=== PATIENT | male | born 2000 | race Caucasian/White ===

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

== ENCOUNTER → 2022-02-21 | Outpatient (CLI) | payer OTHER | LOC: M RAD 11:20 | PROVIDERS: ATTEND Nurse Practitioner Family | DX: I86.1 Scrotal varices (principal); N50.812 Left testicular pain ==

== ENCOUNTER → 2022-04-03 | Outpatient (REF) | payer OTHER ==
[2022-04-03 14:42] LABS: SEMEN APPEARANCE OPAQUE (OPAQUE); SEMEN VISCOSITY VISCOUS (LIQUID); SEMEN VOLUME 0.9 ml (2.0-5.0)
[2022-04-03 14:43] LABS: SPERM CONCENTRATION 40.9 M/ml (>=15.0); WBC CONCENTRATION >1 M/ml (<=1 M/ml)
== END ==
LOC: M SMT 14:06
PROVIDERS: ATTEND Urology
DX: I86.1 Scrotal varices (principal)

== ENCOUNTER → 2022-05-24 | Outpatient (CLI) | payer OTHER ==
[2022-05-24 11:06] LABS: HEMATOCRIT 46.5 % (42.0-52.0); HEMOGLOBIN 15.4 g/dl (13.5-17.5); MEAN CORPUSCULAR HEMOGLOBIN 29.1 pg (27.0-33.0); MEAN CORPUSCULAR HGB CONC 33.1 g/dl (32.0-36.5); MEAN CORPUSCULAR VOLUME 87.7 fl (80.0-96.0); PLATELET COUNT, AUTOMATED 270 10^3/uL (150-450); WHITE BLOOD COUNT 6.6 10^3/uL (4.0-10.0)
[2022-05-24 11:08] LABS: APPEARANCE, URINE MANUAL CLEAR (CLEAR); COLOR, URINE MANUAL YELLOW (YELLOW)
[2022-05-24 11:09] LABS: BILIRUBIN, URINE MANUAL NEGATIVE (NEGATIVE); BLOOD URINE MANUAL NEGATIVE (NEGATIVE); GLUCOSE, URINE (UA) MANUAL NEGATIVE (NEGATIVE); KETONE, URINE MANUAL NEGATIVE (NEGATIVE); LEUKOCYTE ESTERASE, URINE MAN NEGATIVE (NEGATIVE); NITRITE, URINE MANUAL NEGATIVE (NEGATIVE); PH,URINE MAN 6.5 UNITS (5.0 - 7.0); PROTEIN, URINE MANUAL NEGATIVE (NEGATIVE); UROBILINOGEN, URINE MANUAL NORMAL (NORMAL)
[2022-05-24 11:41] LABS: ALBUMIN 4.4 G/DL (3.2-5.2); ALKALINE PHOSPHATASE 106 U/L (46-116); ALT/SGPT 25 U/L (7.0-40); AST/SGOT 20 U/L (<34); BILIRUBIN,TOTAL 0.5 MG/DL (0.3-1.2); BLOOD UREA NITROGEN 7 MG/DL (9-23); CALCIUM LEVEL 9.7 MG/DL (8.5-10.1); CARBON DIOXIDE LEVEL 30 MMOL/L (20-31); CHLORIDE LEVEL 103 MMOL/L (98-107); CREATININE FOR GFR 0.71 MG/DL (0.70-1.30); GLOMERULAR FILTRATION RATE > 60.0 (>60); GLUCOSE, FASTING 78 MG/DL (60-100); POTASSIUM SERUM 3.9 MMOL/L (3.5-5.1); SODIUM LEVEL 141 MMOL/L (136-145); TOTAL PROTEIN 7.5 G/DL (5.7-8.2)
== END ==
LOC: M LAB 09:55
PROVIDERS: ATTEND Urology
DX: I86.1 Scrotal varices (principal); Z79.899 Other long term (current) drug therapy

== ENCOUNTER → 2022-05-27 | Outpatient (CLI) | payer OTHER ==
[~2022-05-27] MED LIST changes: +MELO15TA28 PO; -METHACHOLINE KIT (J7674) INH ONE
== END ==
LOC: M LABSMTC 09:25
PROVIDERS: ATTEND Anesthesiology
DX: Z01.818 Encounter for other preprocedural examination (principal); Z11.52 Encounter for screening for COVID-19

== ENCOUNTER 2022-06-01 09:58 | Day surgery (SDC) | payer OTHER ==
[~2022-06-01] VITALS: Ht 177.8 cm; Wt 56.2 kg
[~2022-06-01 09:58] MED LIST changes: +LIDOCAINE 2% 100MG/5ML SDV (FOR ANES.) As Ordered ONE; +ONDANSETRON 4MG 2ML VIAL As Ordered ONE; +ceFAZolin SOD 2 GM in IV 1 EA IV ONE; +propofoL 200 MG/20 ML VIAL As Ordered ONE
[2022-06-01] MEDS ORDERED: LR 1,000 ML IV SCH ×2 (11:05→13:45)
[2022-06-01] MEDS ORDERED: ROCURONIUM BROMIDE 50MG/5ML VIAL As Ordered ONE (11:28)
[2022-06-01] MEDS ORDERED: MIDAZOLAM INJ 2MG/2ML VIAL As Ordered ONE (12:06)
[2022-06-01] MEDS ORDERED: fentaNYL 100 MCG/2 ML INJECTION As Ordered ONE (12:06)
[2022-06-01] MEDS ORDERED: LIDOCAINE 1% SDV 30ML VIAL As Ordered ONE (12:07)
[2022-06-01] MEDS ORDERED: BUPIVACAINE HCL 0.25% 30ML VIAL As Ordered ONE (12:07)
[2022-06-01] MEDS ORDERED: ePHEDrine SULFATE 25 MG/5 ML(5MG/ML) SYRINGE As Ordered ONE ×2 (13:05→13:25)
[2022-06-01] MEDS ORDERED: ACETAMINOPHEN 1000MG 100ML IV BAG As Ordered ONE (13:14)
[2022-06-01] MEDS ORDERED: oxyCODONE 5MG TAB PO PRN (13:45)
[2022-06-01] MEDS ORDERED: METOCLOPRAMIDE INJ 10MG/2ML VIAL IV PRN (13:45)
[2022-06-01] MEDS ORDERED: fentaNYL 100 MCG/2 ML INJECTION IV PRN (13:45)
[2022-06-01] MEDS ORDERED: ONDANSETRON 4MG 2ML VIAL IV PRN (13:45)
[2022-06-01] MEDS ORDERED: HYDR-3713 PO (13:52)
[2022-06-01] MEDS ORDERED: CEPH500C PO (13:52)
[2022-06-01 15:30] VITALS: BP 108/56
== END 2022-06-01 15:33 | disposition home or self-care (01) ==
LOC: M SDC 09:58
PROVIDERS: ATTEND Urology
DX: I86.1 Scrotal varices (principal); F41.9 Anxiety disorder, unspecified; F32.A Depression, unspecified; M25.511 Pain in right shoulder; R16.0 Hepatomegaly, not elsewhere classified; F17.210 Nicotine dependence, cigarettes, uncomplicated; Z79.1 Long term (current) use of non-steroidal anti-inflammatories (NSAID)
CPT/HCPCS: 55530; J0690; J1100; J2250; J2405; J3010

== ENCOUNTER → 2022-07-31 | Outpatient (REF) | payer OTHER ==
[~2022-07-31] MED LIST changes: +CEPH500C PO; +HYDR-3713 PO; -LIDOCAINE 2% 100MG/5ML SDV (FOR ANES.) As Ordered ONE; -ONDANSETRON 4MG 2ML VIAL As Ordered ONE; -ceFAZolin SOD 2 GM in IV 1 EA IV ONE; -propofoL 200 MG/20 ML VIAL As Ordered ONE
[2022-07-31 15:42] LABS: SEMEN APPEARANCE OPAQUE (OPAQUE); SEMEN VISCOSITY LIQUID (LIQUID); SEMEN VOLUME 1.2 ml (2.0-5.0); SEMEN pH 8.5 (7.0-8.0)
[2022-07-31 15:43] LABS: SPERM CONCENTRATION 46.2 M/ml (>=15.0); WBC CONCENTRATION >1 M/ml (<=1 M/ml)
== END ==
LOC: M SMT 14:37
PROVIDERS: ATTEND Physician Assistant
DX: I86.1 Scrotal varices (principal)

== ENCOUNTER → 2022-12-27 | Outpatient (REF) | payer OTHER ==
[2022-12-27 18:22] LABS: APPEARANCE, URINE CLEAR (CLEAR); BACTERIA, URINE AUTO NEGATIVE (NEGATIVE); BILIRUBIN, URINE AUTO NEGATIVE (NEGATIVE); BLOOD, URINE BLOOD NEGATIVE (NEGATIVE); COLOR, URINE STRAW (YELLOW); GLUCOSE, URINE (UA) AUTO NEGATIVE (NEGATIVE); KETONE, URINE AUTO NEGATIVE (NEGATIVE); LEUKOCYTE ESTERASE, URINE AUTO NEGATIVE (NEGATIVE); MUCUS, URINE SMALL (NEGATIVE); NITRITE, URINE AUTO NEGATIVE (NEGATIVE); PROTEIN, URINE AUTO NEGATIVE (NEGATIVE); RBC, URINE AUTO 1 /HPF (0-3); SPECIFIC GRAVITY URINE AUTO 1.006 (1.002-1.035); SQUAMOUS EPITHELIAL CELL UR AU 0 /HPF (0-6); UROBILINOGEN, URINE AUTO 0.2 mg/dL (0.0-2.0); WBC, URINE AUTO 0 /HPF (0-3)
[2022-12-27 21:02] LABS: GC DNA AMPLIFICATION NEGATIVE (NEGATIVE)
== END ==
LOC: M SMT 17:31
PROVIDERS: ATTEND Physician Assistant
DX: R31.0 Gross hematuria (principal)

== ENCOUNTER → 2023-02-07 | Outpatient (CLI) | payer OTHER ==
[~2023-02-07] MED LIST changes: +ISOVUE-370 76% 100ML VIAL As Ordered ONE
== END ==
LOC: M RAD 10:20
PROVIDERS: ATTEND Physician Assistant
DX: R10.32 Left lower quadrant pain (principal)
CPT/HCPCS: 72193; Q9967

== ENCOUNTER 2023-07-26 12:16 | Emergency (ER) | payer OTHER ==
[~2023-07-26] VITALS: Ht 180.3 cm; Wt 58.7 kg
[~2023-07-26 12:16] MED LIST changes: -ISOVUE-370 76% 100ML VIAL As Ordered ONE
[2023-07-26 17:29] LABS: Trichomonas vaginalis (AMP) NOT DETECTED (NEGATIVE)
[2023-07-26 17:53] LABS: GC DNA AMPLIFICATION NEGATIVE (NEGATIVE)
[2023-07-26] MEDS ORDERED: IBUP-1022 PO (18:15)
[2023-07-26 18:23] VITALS: BP 116/59; TEMP 97.9; O2SAT 95
== END 2023-07-26 18:33 | disposition home or self-care (01) ==
LOC: M ED 12:16
DX: N50.819 Testicular pain, unspecified (principal); F17.210 Nicotine dependence, cigarettes, uncomplicated; Z79.1 Long term (current) use of non-steroidal anti-inflammatories (NSAID)

== ENCOUNTER → 2023-08-08 | Outpatient (REF) | payer OTHER ==
[~2023-08-08] MED LIST changes: +IBUP-1022 PO
[2023-08-08 12:05] LABS: SEMEN APPEARANCE OPAQUE (OPAQUE); SEMEN VISCOSITY LIQUID (LIQUID); SEMEN VOLUME 1.5 ml (2.0-5.0); SEMEN pH 8.5 (7.0-8.0); SPERM CONCENTRATION 48.9 M/ml (>=15.0); WBC CONCENTRATION <=1 M/ml (<=1 M/ml)
== END ==
LOC: M SMT 09:29
PROVIDERS: ATTEND Physician Assistant
DX: Z31.41 Encounter for fertility testing (principal)

== ENCOUNTER → 2024-03-04 | Outpatient (CLI) | payer OTHER | LOC: M SOG 07:56 | PROVIDERS: ATTEND Physician Assistant | DX: M25.531 Pain in right wrist (principal) ==

== ENCOUNTER → 2024-05-20 | Outpatient (CLI) | payer OTHER | LOC: M SOG 13:53 | PROVIDERS: ATTEND Physician Assistant | DX: M25.511 Pain in right shoulder (principal) ==

== ENCOUNTER → 2024-06-30 | Outpatient (CLI) | payer OTHER ==
[~2024-06-30] MED LIST changes: +ISOVUE-300 61% 100ML VIAL As Ordered ONE; +LIDOCAINE 1% MDV 20ML VIAL As Ordered ONE; +PROHANCE 279.3MG/ML 5ML VIAL As Ordered ONE
== END ==
LOC: M RAD 12:39
PROVIDERS: ATTEND Physician Assistant
DX: M25.511 Pain in right shoulder (principal)

== ENCOUNTER 2024-12-31 16:05 | Emergency (ER) | payer OTHER ==
[~2024-12-31] VITALS: Ht 180.3 cm; Wt 58.8 kg
[~2024-12-31 16:05] MED LIST changes: -IBUP-1022 PO; +IBUP600T42 PO; -ISOVUE-300 61% 100ML VIAL As Ordered ONE; -LIDOCAINE 1% MDV 20ML VIAL As Ordered ONE; -PROHANCE 279.3MG/ML 5ML VIAL As Ordered ONE
[2024-12-31] MEDS: KETOROLAC 30 MG/ML 1 ML VIAL IV ONE (17:31)
[2024-12-31 17:43] LABS: BASO # 0.1 10^3/uL (0.0-0.2); BASO % 0.8 % (0.0-1.0); EOS # 0.2 10^3/uL (0.0-0.5); EOS % 2.4 % (0.0-3.0); LYMPH # 2.0 10^3/uL (1.5-5.0); LYMPH % 30.1 % (24.0-44.0); MONO # 0.8 10^3/uL (0.0-0.8); MONO % 12.2 % (2.0-8.0); NEUTROPHILS # 3.6 10^3/uL (1.5-8.5); NEUTROPHILS % 54.2 % (36.0-66.0); PLATELET COUNT, AUTOMATED 227 10^3/uL (150-450)
[2024-12-31 17:46] LABS: KETONE, URINE AUTO RFX TRACE mg/dL (NEGATIVE); LEUKOCYTE ESTERASE UR AUTO RFX NEGATIVE (NEGATIVE); MUCUS, URINE RFX SMALL (NEGATIVE); NITRITE, URINE AUTO RFX NEGATIVE (NEGATIVE); RBC, URINE AUTO RFX 0 /HPF (0-3); SQUAM EPITHELIAL CELL UR AURFX 0 /HPF (0-6); WBC, URINE AUTO RFX 0 /HPF (0-3)
[2024-12-31 18:12] LABS: CALCIUM LEVEL 9.4 MG/DL (8.5-10.1); CARBON DIOXIDE LEVEL 30 MMOL/L (20-31); CHLORIDE LEVEL 103 MMOL/L (98-107); CREATININE FOR GFR 0.82 MG/DL (0.70-1.30); GLOMERULAR FILTRATION RATE > 90.0 (>60); POTASSIUM SERUM 3.8 MMOL/L (3.5-5.1); SODIUM LEVEL 138 MMOL/L (136-145)
[2024-12-31 18:41] LABS: Trichomonas vaginalis (AMP) NOT DETECTED (NEGATIVE)
[2024-12-31 19:05] LABS: GC DNA AMPLIFICATION NEGATIVE (NEGATIVE)
[2024-12-31] MEDS: NS (Normal Saline) 0.9% 1,000 ML IV ONE (20:58)
[2025-01-01 01:00] VITALS: BP 118/58
[2025-01-01 01:02] VITALS: O2SAT 97
[2025-01-01 01:29] VITALS: TEMP 98.1
== END 2025-01-01 01:35 | disposition home or self-care (01) ==
LOC: M ED 16:05
DX: R55 Syncope and collapse (principal); N50.812 Left testicular pain; F41.9 Anxiety disorder, unspecified; F32.A Depression, unspecified; F17.210 Nicotine dependence, cigarettes, uncomplicated; F12.10 Cannabis abuse, uncomplicated; Z79.1 Long term (current) use of non-steroidal anti-inflammatories (NSAID)
CPT/HCPCS: 70450; 72192; 76870; 80048; 81001; 83605; 85025; 87661; 87810; 87850; 93005; 93041; 93976; 96374; 99285; J1885

== ENCOUNTER → 2025-02-16 | Outpatient (CLI) | payer OTHER | LOC: M SOG 07:34 | PROVIDERS: ATTEND Physician Assistant | DX: M25.512 Pain in left shoulder (principal) ==